=== PATIENT | female | born 1950 | race Caucasian/White ===

== ENCOUNTER 2019-05-24 06:12 | Outpatient (CLI) | payer MEDICARE, MEDICAID ==
[~2019-05-24] VITALS: Ht 167.6 cm; Wt 56.2 kg
[2019-05-24] MEDS ORDERED: ZOLP5TAB7 PO (09:11)
[2019-05-24] MEDS ORDERED: LINA145C PO (09:11)
[2019-05-24] MEDS ORDERED: FERR160T6 PO (09:11)
[2019-05-24] MEDS ORDERED: CALC-250 PO (09:11)
[2019-05-24] MEDS ORDERED: THYR120T2 PO (09:11)
[2019-05-24] MEDS ORDERED: ATEN50TA PO (09:11)
[2019-05-24] MEDS ORDERED: EST1.25T PO (09:11)
[2019-05-24] MEDS ORDERED: OMEP40CA36 PO (09:11)
[2019-05-24] MEDS ORDERED: HYDR12.56 PO (09:11)
[2019-05-24] MEDS ORDERED: HYDR-3816 PO (09:11)
[2019-05-24] MEDS ORDERED: CALC-308 PO (09:11)
[2019-05-24] MEDS ORDERED: ATOR40TA70 PO (09:11)
[2019-05-24] MEDS ORDERED: GABA-488 PO (09:11)
[2019-05-24] MEDS ORDERED: LORA0.5T PO (09:11)
== END 2019-05-24 09:17 | disposition home or self-care (01) ==
LOC: PREOP 06:12
PROVIDERS: ATTEND Orthopaedic Surgery
DX: Z01.818 Encounter for other preprocedural examination (principal)

== ENCOUNTER 2019-05-29 05:51 | Observation (INO) | payer MEDICARE, MEDICAID ==
[~2019-05-29] VITALS: Ht 167.7 cm; Wt 54.9 kg
[2019-05-29] VITALS (13 sets, daily range): BP systolic 95–137; BP diastolic 44–90
[~2019-05-29 05:51] MED LIST: ATEN50TA PO; ATOR40TA70 PO; CALC-250 PO; CALC-308 PO; EST1.25T PO; FERR160T6 PO; GABA-488 PO; HYDR-3816 PO; HYDR12.56 PO; LINA145C PO; LORA0.5T PO; OMEP40CA36 PO; THYR120T2 PO; ZOLP5TAB7 PO
[2019-05-29] MEDS ORDERED: MIDAZOLAM 2 MG/2 ML (VERSED) VIAL ONE (06:30)
[2019-05-29] MEDS ORDERED: fentaNYL INJECTION 100 MCG/2 ML AMP ONE (06:30)
[2019-05-29] MEDS ORDERED: DEXMEDETOMIDINE 200 MCG/2 ML (PRECEDEX) VIAL IV ONE (06:35)
[2019-05-29] MEDS ORDERED: LACTATED RINGERS 1,000 ML IV PRN (06:39)
[2019-05-29] MEDS ORDERED: VANCOMYCIN 1000 MG/VIAL ONE (06:42)
[2019-05-29] MEDS ORDERED: GENTAMICIN 40 MG/ML 2 ML INJ SDV ONE (06:42)
[2019-05-29] MEDS ORDERED: BUP/EPI 0.25% 1:200,000 (MARCAINE) 10 ML VIAL IJ ONE (06:42)
[2019-05-29] MEDS ORDERED: CLINDAMYCIN 600 MG/50 ML IVPB 50 ML IV ONE (06:45)
[2019-05-29] MEDS ORDERED: BACITRACIN 100,000 UNIT/NS 1000 ML POUR BOTTLE IR ONE ×2 (07:15)
--- NOTE | 2019-05-29 07:35 | NUR ---
DR. LIU CALLED AT THIS TIME, HE STATED HE CAN'T SEE PT. UNTIL THIS AFTERNOON & SINCE IT IS A NEW ONSET, HE'D LIKE PT. TO BE ADMITTED TO THE HOSPITAL.
--- NOTE | 2019-05-29 08:40 | NUR ---
DR. ROMAN CALLED AT THIS TIME
--- NOTE | 2019-05-29 08:55 | NUR ---
DR. LIU HERE AT THIS TIME TO SEE THE PT.
--- NOTE | 2019-05-29 09:05 | NUR ---
DR. ROMAN HERE AT THIS TIME TO SEE THE PT.
--- NOTE | 2019-05-29 11:40 | NUR ---
REPORT GIVEN TO CATHY KHANNA.
[2019-05-29] MEDS ORDERED: AMIODARONE FOR BOLUS 150 MG in D5W 100 ML IVPB 100 ML IV NR (13:11)
[2019-05-29] MEDS ORDERED: ONDANSETRON 4 MG (ZOFRAN) ORAL DISSOLVE TAB PO PRN (13:15)
[2019-05-29] MEDS ORDERED: DILTIAZEM 180 MG (CARDIZEM CD) CAP PO ONE (13:15)
[2019-05-29] MEDS ORDERED: PATIENT MAY USE OWN MEDS, ALL PO SCH (13:15)
[2019-05-29] MEDS ORDERED: MELATONIN 3 MG TABLET PO PRN (13:15)
[2019-05-29] MEDS ORDERED: APIXABAN 5 MG (ELIQUIS) TABLET PO NR (13:15)
[2019-05-29] MEDS ORDERED: BISACODYL 10 MG SUPP (DULCOLAX) PR PRN (13:15)
[2019-05-29] MEDS ORDERED: ACETAMINOPHEN 325 MG TABLET PO PRN (13:15)
[2019-05-29] MEDS ORDERED: POLYETHYLENE GLYCOL 17 GM (MIRALAX) PACK PO PRN (13:15)
[2019-05-29] MEDS ORDERED: DILTIAZEM 120 MG (CARDIZEM CD) CAP PO NR (13:30)
[2019-05-29 14:21] LABS: BASOPHILS % (AUTO) 1 % (0-10); EOSINOPHILS # (AUTO) 0.1 10^3/uL (0.0-0.3); EOSINOPHILS % (AUTO) 2 % (0-10); HEMATOCRIT 30 % (35-52); HEMOGLOBIN 9.5 G/DL (11.5-16.0); LYMPHOCYTES # (AUTO) 1.2 X 10^3 (1.0-4.0); LYMPHOCYTES % (AUTO) 37 % (12-44); MEAN CORPUSCULAR HEMOGLOBIN 28 PG (25-34); MEAN CORPUSCULAR HGB CONC 31 G/DL (32-36); MEAN CORPUSCULAR VOLUME 91 FL (80-99); MEAN PLATELET VOLUME 11.4 FL (7.4-10.4); MONOCYTES # (AUTO) 0.3 X 10^3 (0.0-1.0); MONOCYTES % (AUTO) 8 % (0-12); NEUTROPHILS # (AUTO) 1.7 X 10^3 (1.8-7.8); NEUTROPHILS % (AUTO) 52 % (42-75); PLATELET COUNT 147 10^3/uL (130-400); RED CELL DISTRIBUTION WIDTH 15.1 % (10.0-14.5); WHITE BLOOD COUNT 3.3 10^3/uL (4.3-11.0)
[2019-05-29 14:39] LABS: ALANINE AMINOTRANSFERASE 14 U/L (0-55); ALBUMIN 2.7 GM/DL (3.2-4.5); ALKALINE PHOSPHATASE 68 U/L (40-136); BILIRUBIN,TOTAL 0.3 MG/DL (0.1-1.0); BUN/CREATININE RATIO 30; CALCIUM 8.9 MG/DL (8.5-10.1); CARBON DIOXIDE 27 MMOL/L (21-32); CHLORIDE 110 MMOL/L (98-107); GFR ESTIMATED > 60; GLUCOSE 94 MG/DL (70-105); MAGNESIUM 1.6 MG/DL (1.6-2.4); POTASSIUM 3.9 MMOL/L (3.6-5.0); SODIUM 139 MMOL/L (135-145); TOTAL PROTEIN 5.4 GM/DL (6.4-8.2)
--- NOTE | 2019-05-29 15:05 | Consultation-Cardiology ---
HPI-Cardiology Cardiology Consultation: Date of Consultation 05/29/19 Date of Admission Attending Physician Poonam Paredes MD Admitting Physician No,Local Physician Consulting Physician Vin ALMANZAR MD HPI: Time Seen by a Provider: 09:30 Chief Complaint: New onset atrial fibrillation This is a 68-year-old lady who has previous history of PE, gastric bypass, hypertension, hypothyroidism, hyperlipidemia, sciatica with scheduled surgery for spinal cord stimulator. She was found to have a regular heart beating on arrival. EKG demonstrated atrial fibrillation with controlled ventricular rate. She has occasional palpitations. However she denies chest pain, shortness of breath, nausea, vomiting, abdominal pain. She has previous history of pulmonary embolism one and a half years ago. She took Eliquis for 6 months. Review of Systems-Cardiology Review of Systems Constitutional: As described under HPI; No As described under HPI, No no symptoms reported, No chills, No fever, No lightheadedness Eyes: No As described under HPI, No no symptoms reported, No blindness, No blurred vision, No contact lenses, No drainage, No decreased acuity, No foreign body sensation, No pain, No vision change Ears/Nose/Throat: No As described under HPI, No no symptoms reported, No chronic hearing loss, No ear discharge, No ear pain, No nasal drainage, No ulcerations Respiratory: No no symptoms reported; As described under HPI; No As described under HPI, No cough, No orthopnea, No shortness of breath, No SOB with excertion Cardiovascular: No no symptoms reported; As described under HPI; No As described under HPI, No chest pain, No edema; irregular heart rate; No lightheadedness, No palpitations Gastrointestinal: No no symptoms reported, No As described under HPI, No abdomen distended, No abdominal pain, No blood streaked bowels, No constipation, No diarrhea, No nausea, No vomiting, No stool coloration changes Genitourinary: No As described under HPI, No burning, No dysuria, No discharge, No frequency, No flank pain, No hematuria, No urgency : Yes : No Skin: No rash, No skin related problems, No ulcerations Psychiatric/Neurological: No anxiety, No depression, No seizure, No focal weakness, No syncope Hematologic: No bleeding abnormalities [id number]-[id number]-Ecbzmi Hx Patient Social History Alcohol Use: Denies Use Recreational Drug Use: No Smoking Status: Former Smoker Recent Foreign Travel: No Recent Infectious Disease Expo: No Immunizations Up To Date Tetanus Booster (TDap): Unknown Date of Pneumonia Vaccine: May 24, 2016 Past Medical History PMH As described under Assessment. Allergies and Home Medications Allergies Coded Allergies: Penicillins (Verified Allergy, Unknown, 05/24/19) buprenorphine (Verified Allergy, Unknown, Anaphylaxis, 05/24/19) ibuprofen (Verified Allergy, Unknown, Anaphylaxis, 05/24/19) naproxen (Verified Allergy, Unknown, Anaphylaxis, 05/24/19) Home Medications Atenolol 50 Mg Tablet, 25 MG PO DAILY, (Reported) take 1/2 of 50mg tab Atorvastatin Calcium 40 Mg Tablet, 40 MG PO HS, (Reported) Calcium Carbonate 500 Mg Tab.chew, 500 MG PO BID, (Reported) Cholecalciferol 5,000 Unit Capsule, 5,000 UNIT PO DAILY, (Reported) Estrogens Conjugated 1.25 Mg Tab, 1.25 MG PO DAILY, (Reported) Ferrous Sulfate, Dried 160 Mg Tablet.er, 160 MG PO DAILY, (Reported) Gabapentin 300 Mg Capsule, 300 MG PO HS, (Reported) Hydrochlorothiazide 12.5 Mg Tablet, 12.5 MG PO DAILY PRN for leg swelling, (Reported) Hydrocodone/Acetaminophen 1 Each Tablet, 1 TAB PO Q6H PRN for PAIN-MODERATE, (Reported) Linaclotide 145 Mcg Capsule, 145 MCG PO Q48H, (Reported) Lorazepam 0.5 Mg Tablet, 0.5 MG PO HS, (Reported) Omeprazole 40 Mg Capsule.dr, 40 MG PO DAILY, (Reported) Thyroid,Pork 120 Mg Tablet, 120 MG PO DAILY, (Reported) Zolpidem Tartrate 5 Mg Tablet, 5 MG PO HS, (Reported) Patient Home Medication List Home Medication List Reviewed: Yes Physical Exam-Cardiology Physical Exam Vital Signs/I&O 05/29/19 05/29/19 05/29/19 05/29/19 06:15 12:00 12:52 13:00 Temp 36.8 Pulse 86 68 68 70 Resp 18 20 41 B/P (MAP) 121/70 115/75 121/71 Pulse Ox 98 97 90 O2 Delivery Room Air Room Air Room Air 05/29/19 05/29/19 05/29/19 05/29/19 14:00 15:00 16:00 17:00 Pulse 68 68 102 73 Resp 32 13 28 13 B/P (MAP) 119/90 128/89 118/69 110/44 Pulse Ox 98 98 96 97 O2 Delivery Room Air Room Air Room Air Room Air Capillary Refill : Constitutional: appears stated age, AAO x 3; No apparent distress; well- developed, well-nourished HEENT: PERRL; No discharge; hearing is well preserved, oral hygience is good; No ulceration, No xanthelasmas are seen Neck: No carotid bruit; carotid pulses are 2 + bilaterally Respiratory: chest is bilaterally symmetric, lungs clear to auscultation Cardiovascular: irregularly irregular, S1 and S2 Gastrointestinal: soft, audible bowel sounds; No spleenomegaly Rectal: deferred Extremities: normal range of motion, non-tender, normal inspection; No clubbing, No cyanosis; no lower extremity edema bilateral; No significant edema Neurologic/Psychiatric: no motor/sensory deficits, alert, normal mood/affect, oriented x 3, power is 5/5 both on sides Skin: normal color; No rash, No ulcerations Data Review Labs Laboratory Tests 05/29/19 14:10: White Blood Count 3.3L, Red Blood Count 3.36L, Hemoglobin 9.5L, Hematocrit 30L, Mean Corpuscular Volume 91, Mean Corpuscular Hemoglobin 28, Mean Corpuscular Hemoglobin Concent 31L, Red Cell Distribution Width 15.1H, Platelet Count 147, Mean Platelet Volume 11.4H, Neutrophils (%) (Auto) 52, Lymphocytes (%) (Auto) 37, Monocytes (%) (Auto) 8, Eosinophils (%) (Auto) 2, Basophils (%) (Auto) 1, Neutrophils # (Auto) 1.7L, Lymphocytes # (Auto) 1.2, Monocytes # (Auto) 0.3, Eosinophils # (Auto) 0.1, Basophils # (Auto) 0.0, Sodium Level 139, Potassium Level 3.9, Chloride Level 110H, Carbon Dioxide Level 27, Anion Gap 2L, Blood Urea Nitrogen 21H, Creatinine 0.70, Estimat Glomerular Filtration Rate > 60, BUN/Creatinine Ratio 30, Glucose Level 94, Calcium Level 8.9, Corrected Calcium 9.9, Magnesium Level 1.6, Total Bilirubin 0.3, Aspartate Amino Transf (AST/SGOT) 16, Alanine Aminotransferase (ALT/SGPT) 14, Alkaline Phosphatase 68, Total Protein 5.4L, Albumin 2.7L, Thyroid Stimulating Hormone (TSH) 0.75 ECG Impression ECG Initial ECG Impression: Atrial Fibrillation A/P-Cardiology Assessment/Admission Diagnosis Atrial fibrillation with controlled ventricular rate, Previous history of pulmonary embolism, Sciatica, Hypothyroid and, Hyperlipidemia, Hypertension, History of gastric bypass surgery. Plan I discussed at length about pathophysiology of atrial fibrillation. Since this is new onset atrial fibrillation, inpatient evaluation is recommended. She'll be started on by mouth Cardizem. Eliquis 5 mg twice a day. We'll also give IV amiodarone bolus overnight. If she does not convert till tomorrow morning we will consider transesophageal echocardiogram assisted cardioversion. I discussed at length and took informed consent which included small chance of esophageal damage as well as small risk of stroke. She will continue Eliquis post cardioversion. Eliquis will need to be held for at least for 2 days before the spinal stimulator can be done. Elevated CHADSVASC score of at least 3, gender, hypertension, age. Therefore Eliquis is superior to aspirin. Also she is allergic to aspirin due to her gastric bypass surgery. I'll recommend a regular echocardiogram as well to evaluate left atrial size. Sciatica, postpone spinal stimulator. Hyperlipidemia, continue outpatient statin therapy. Hypertension, continue outpatient medical therapy. Thank you for your consultation. Please call me if you have any questions. Mickie Almanzar MD, FACP, FACC, FSCAI, FHRS, CCDS Interventional Cardiology Cardiac Electrophysiology Vascular Medicine and Endovascular Interventions Vin ALMANZAR MD May 29, 2019 15:05
--- NOTE | 2019-05-29 16:17 | History & Physical-Hospitalist ---
History of Present Illness HPI/Chief Complaint Billy Lovett is a 68-year-old female with past medical history of hypertension, hypothyroidism, hyperlipidemia, sciatica, who presented for a scheduled surgery to have a spinal cord stimulator placed. Upon arrival she was found to be in atrial fibrillation. Her surgery was canceled. Cardiology was consulted and recommended admission to begin antiarrhythmics, anticoagulation, and possible cardioversion. She reports having no current symptoms. She does state that she occasionally has a "fluttering" in her chest "like a bird flapping its wings". She denies any chest pain, shortness of breath, abdominal pain, nausea, vomiting. Source: patient Exam Limitations: no limitations Date Seen 05/29/19 Time Seen by a Provider: 10:30 Attending Physician Kathleen Roman MD PCP No,Local Physician Referring Physician Date of Admission May 29, 2019 at 11:58 Home Medications & Allergies Home Medications Reviewed patient Home Medication Reconciliation performed by pharmacy medication reconciliations food service technician and/or nursing. Patients Allergies have been reviewed. Allergies Allergies Coded Allergies Penicillins (Verified Allergy, Unknown, 05/24/19) buprenorphine (Verified Allergy, Unknown, Anaphylaxis, 05/24/19) ibuprofen (Verified Allergy, Unknown, Anaphylaxis, 05/24/19) naproxen (Verified Allergy, Unknown, Anaphylaxis, 05/24/19) Past Ghzlggl-Julqrp-Smrjrs Hx Past Med/Social Hx: Reviewed Nursing Past Med/Soc Hx Patient Social History Alcohol Use: Denies Use Recreational Drug Use: No Smoking Status: Former Smoker Former Smoker, Quit: May 24, 1998 Recent Foreign Travel: No Contact w/other who traveled: No Recent Hopitalizations: No Recent Infectious Disease Expo: No Immunizations Up To Date Tetanus Booster (TDap): Unknown Pediatric: No Date of Pneumonia Vaccine: May 24, 2016 Seasonal Allergies Seasonal Allergies: Yes Past Medical History Surgeries: Gallbladder, Hysterectomy Cardiac: High Cholesterol, Hypertension Hysterectomy Gastrointestinal: Gastroesophageal Reflux, Chronic Constipation Musculoskeletal: Arthritis, Chronic Back Pain HEENT: Cataract Psychosocial: Depression History of Blood Disorders: No Review of Systems Constitutional: no symptoms reported, see HPI EENTM: no symptoms reported Respiratory: no symptoms reported Cardiovascular: no symptoms reported Gastrointestinal: no symptoms reported Genitourinary: no symptoms reported Skin: no symptoms reported Psychiatric/Neurological: No Symptoms Reported Physical Exam Physical Exam Vital Signs Vital Signs - First Documented 05/29/19 06:15 Temp 36.8 Pulse 86 Resp 18 B/P (MAP) 121/70 Pulse Ox 98 O2 Delivery Room Air Capillary Refill : Height, Weight, BMI Height: 5'6.00" Weight: 124lbs. 0.0oz. 56.009138qm; 20.19 BMI Method: General Appearance: No Apparent Distress, WD/WN HEENT: PERRL/EOMI, Pharynx Normal Neck: Normal Inspection, Supple Respiratory: Lungs Clear, Normal Breath Sounds, No Respiratory Distress Cardiovascular: Regular Rate, Rhythm, No Edema, No Murmur Gastrointestinal: Normal Bowel Sounds, Non Tender, Soft Extremity: Normal Inspection, Non Tender Neurologic/Psychiatric: Alert, Oriented x3 Skin: Normal Color, Warm/Dry Lymphatic: No Adenopathy Results Results/Procedures Labs Laboratory Tests 05/29/19 14:10 Patient resulted labs reviewed. Assessment/Plan Admission Diagnosis paroxysmal atrial fibrillation Admission Status: Observation Reason for Inpatient Admission: hypertension Hyperlipidemia Hypothyroidism Assessment and Plan paroxysmal atrial fibrillation New onset EKG revealing rate controlled atrial fibrillation Spinal cord stimulator procedure canceled Admit to the ICU on IV amiodarone begin oral Cardizem start Eliquis Cardiology consulted, appreciate assistance transthoracic echocardiogram ordered Nothing by mouth midnight for possible ESAU cardioversion tomorrow Hypertension Continue atenolol Hypothyroidism Continue thyroid replacement therapy Hyperlipidemia Continue statin Sciatica procedure canceled, will follow-up with Dr. Tan in about a month oxycodone and Tylenol as needed History of pulmonary embolism history of DVT provoked following surgery completed six-month course of Eliquis history of gastric bypass Clinically significant, no acute management needs Diagnosis/Problems Diagnosis/Problems (1) Paroxysmal atrial fibrillation Status: Acute KATHLEEN ROMAN MD May 29, 2019 16:17
[2019-05-29] MEDS: AMIODARONE INJECTION 450 MG in D5W IV SOLUTION (EXCEL) 250 ML IV SCH ×3 (18:19→22:01)
[2019-05-29] MEDS ORDERED: LORazepam 0.5 MG (ATIVAN) TABLET PO SCH (21:00)
[2019-05-29] MEDS ORDERED: GABAPENTIN 300 MG (NEURONTIN) CAP PO SCH (21:00)
[2019-05-29] MEDS: SENNA W/DOCUSATE (SENOKOT S) TABLET PO SCH (21:11)
[2019-05-29] MEDS: APIXABAN 5 MG (ELIQUIS) TABLET PO SCH (21:12)
[2019-05-29] MEDS: DOCUSATE SODIUM 100 MG (COLACE) CAP PO SCH (21:12)
[2019-05-30] VITALS (13 sets, daily range): BP systolic 93–118; BP diastolic 46–70
[2019-05-30 03:22] LABS: HEMOGLOBIN 9.7 G/DL (11.5-16.0); MEAN PLATELET VOLUME 11.4 FL (7.4-10.4); RED CELL DISTRIBUTION WIDTH 14.8 % (10.0-14.5); WHITE BLOOD COUNT 3.8 10^3/uL (4.3-11.0)
[2019-05-30 03:45] LABS: BUN/CREATININE RATIO 30; CARBON DIOXIDE 24 MMOL/L (21-32); CHLORIDE 111 MMOL/L (98-107); CREATININE SERUM 0.69 MG/DL (0.60-1.30); GFR ESTIMATED > 60; GLUCOSE 84 MG/DL (70-105); MAGNESIUM 1.5 MG/DL (1.6-2.4); POTASSIUM 4.1 MMOL/L (3.6-5.0); SODIUM 141 MMOL/L (135-145)
[2019-05-30] MEDS: MAGNESIUM 1 GM/100 ML IVPB 100 ML IV SCH ×2 (04:00→05:00)
[2019-05-30] MEDS ORDERED: POTASSIUM CL 10MEQ/50ML IVPB 50 ML IV SCH (06:00)
[2019-05-30] MEDS ORDERED: KCL 20 MEQ TAB (K-DUR) PO SCH (06:00)
[2019-05-30] MEDS ORDERED: MAGNESIUM 1 GM/100 ML IVPB 100 ML IV SCH (06:00)
[2019-05-30] MEDS ORDERED: THYROID (ARMOUR) 60 MG TABLET PO SCH (06:30)
[2019-05-30] MEDS ORDERED: PANTOPRAZOLE 40 MG (PROTONIX) TAB PO SCH (07:00)
[2019-05-30] MEDS ORDERED: NS IV 500 ML 500 ML ONE (07:17)
[2019-05-30] MEDS ORDERED: LIDOCAINE 2% VISCOUS 15 ML UDC ONE (07:17)
[2019-05-30] MEDS ORDERED: NS IV 500 ML 500 ML IV SCH (07:45)
[2019-05-30] MEDS ORDERED: LIDOCAINE 2% VISCOUS 15 ML UDC PO ONE (07:45)
[2019-05-30] MEDS ORDERED: MIDAZOLAM 5 MG/5 ML (VERSED) VIAL ONE (08:23)
[2019-05-30] MEDS ORDERED: proPOfol 200 MG/20 ML (DIPRIVAN) VIAL IV ONE (08:23)
--- NOTE | 2019-05-30 08:36 | NUR ---
Time out called - procedure reviewed.
--- NOTE | 2019-05-30 08:52 | NUR ---
ESAU/cardioversion note: isaac Elizaldeo sandi, Dr. Almanzra, and anesthesia at bedside. Pt connected to all bedside monitoring, including ETCO2 and to zoll patches via crash cart. Ambu bag at bedside. Pt sedated via anesthesia. ESAU performed. Dr. Almanzar gave "ok" to shock, pt shock on sync mode with 200J x1. Pt converted to SB 50s. Will remain with pt until she is awake and alert
[2019-05-30] MEDS ORDERED: THYROID PORK 120 MG PO SCH (09:00)
[2019-05-30] MEDS ORDERED: ATENOLOL 50 MG (TENORMIN) TAB PO SCH (09:00)
[2019-05-30] MEDS ORDERED: ATENOLOL 25 MG (TENORMIN) TAB PO SCH (09:00)
[2019-05-30] MEDS ORDERED: DILTIAZEM 120 MG (CARDIZEM CD) CAP PO SCH (09:00)
[2019-05-30] MEDS: APIXABAN 5 MG (ELIQUIS) TABLET PO SCH (09:03)
[2019-05-30] MEDS: SENNA W/DOCUSATE (SENOKOT S) TABLET PO SCH (09:04)
[2019-05-30] MEDS: DOCUSATE SODIUM 100 MG (COLACE) CAP PO SCH (09:04)
--- NOTE | 2019-05-30 09:20 | Progress Note ---
Standard Progress Note Progress Notes/Assess & Plan Date Seen by a Provider: May 30, 2019 Time Seen by a Provider: 08:50 Progress/Assessment & Plan consult for sedation for nikhil/cardioversion. start time 0850 end time 0900 . 1 mg versed given and 40 mg propofol. pt tolerated procedure well CLAUDIA BARFIELD CRNA May 30, 2019 09:20
[2019-05-30] MEDS ORDERED: DILT120C94 PO (10:39)
[2019-05-30] MEDS ORDERED: APIX5TAB PO (10:39)
--- NOTE | 2019-05-30 10:46 | Discharge Summary ---
Discharge Summary Hospital Course Was the Problem List Reviewed?: Yes Problems/Dx: (1) Paroxysmal atrial fibrillation Status: Acute Hospital Course Date of Admission: May 29, 2019 at 11:58 Admission Diagnosis : Paroxysmal atrial fibrillation Family Physician/Provider: Date of Discharge: 05/30/19 Discharge Diagnosis: Paroxysmal atrial fibrillation Hospital Course: Billy Lovett is a 68yoF with PMH sciatica who presented for a spinal cord stimulator placement but was found to be in new onset atrial fibrillation and her procedure was cancelled. She was admitted to the ICU and started on Amiodarone IV and oral Cardizem as well as Eliquis for anticoagulation. She remained in atrial fibrillation the following morning and underwent ESAU cardioversion and converted to normal sinus rhythm. Her Atenolol was stopped. She was started on new outpatient meds Cardizem and Eliquis. She will follow up with Dr. Almanzar. She will follow up with Dr. Tan for reassessment of her spinal cord stimulator placement procedure. Labs and Pending Lab Test: Laboratory Tests 05/29/19 14:10: White Blood Count 3.3L, Red Blood Count 3.36L, Hemoglobin 9.5L, Hematocrit 30L, Mean Corpuscular Volume 91, Mean Corpuscular Hemoglobin 28, Mean Corpuscular He moglobin Concent 31L, Red Cell Distribution Width 15.1H, Platelet Count 147, Mean Platelet Volume 11.4H, Neutrophils (%) (Auto) 52, Lymphocytes (%) (Auto) 37, Monocytes (%) (Auto) 8, Eosinophils (%) (Auto) 2, Basophils (%) (Auto) 1, Neutrophils # (Auto) 1.7L, Lymphocytes # (Auto) 1.2, Monocytes # (Auto) 0.3, E osinophils # (Auto) 0.1, Basophils # (Auto) 0.0, Sodium Level 139, Potassium Level 3.9, Chloride Level 110H, Carbon Dioxide Level 27, Anion Gap 2L, Blood Urea Nitrogen 21H, Creatinine 0.70, Estimat Glomerular Filtration Rate > 60, BUN/Creatinine Ratio 30, Glucose Level 94, Calcium Level 8.9, Corrected Calcium 9.9, Magnesium Level 1.6, Total Bilirubin 0.3, Aspartate Amino Transf (AST/SGOT) 16, Alanine Aminotransferase (ALT/SGPT) 14, Alkaline Phosphatase 68, Total Protein 5.4L, Albumin 2.7L, Thyroid Stimulating Hormone (TSH) 0.75 05/30/19 02:55: White Blood Count 3.8L, Red Blood Count 3.36L, Hemoglobin 9.7L, Hematocrit 30L, Mean Corpuscular Volume 90, Mean Corpuscular Hemoglobin 29, Mean Corpuscular Hemoglobin Concent 32, Red Cell Distribution Width 14.8H, Platelet Count 153, Mean Platelet Volume 11.4H, Sodium Level 141, Potassium Level 4.1, Chloride Level 111H, Carbon Dioxide Level 24, Anion Gap 6, Blood Urea Nitrogen 21H, Creatinine 0.69, Estimat Glomerular Filtration Rate > 60, BUN/Creatinine Ratio 30, Glucose Level 84, Calcium Level 9.0, Magnesium Level 1.5L Home Meds Active Diltiazem 24Hr Cd (Diltiazem HCl) 120 Mg Cap.er.24h 120 Mg PO DAILY 90 Days Eliquis (Apixaban) 5 Mg Tablet 5 Mg PO BID 90 Days Reported Hydrocodone-Acetamin 7.5-325 (Hydrocodone/Acetaminophen) 1 Each Tablet 1 Tab PO Q6H PRN Gabapentin 300 Mg Capsule 300 Mg PO HS Slow Release Iron (Ferrous Sulfate, Dried) 160 Mg Tablet.er 160 Mg PO DAILY Calcium (Calcium Carbonate) 500 Mg Tab.chew 500 Mg PO BID Vitamin D (Cholecalciferol) 5,000 Unit Capsule 5,000 Unit PO DAILY [place] Thyroid (Thyroid,Pork) 120 Mg Tablet 120 Mg PO DAILY Zolpidem Tartrate 5 Mg Tablet 5 Mg PO HS Lorazepam 0.5 Mg Tablet 0.5 Mg PO HS Omeprazole 40 Mg Capsule.dr 40 Mg PO DAILY Atenolol 50 Mg Tablet 25 Mg PO DAILY take 1/2 of 50mg tab Linzess (Linaclotide) 145 Mcg Capsule 145 Mcg PO Q48H Atorvastatin Calcium 40 Mg Tablet 40 Mg PO HS Premarin (Estrogens Conjugated) 1.25 Mg Tab 1.25 Mg PO DAILY Hydrochlorothiazide 12.5 Mg Tablet 12.5 Mg PO DAILY PRN Assessment/Pt Instructions Take medications as prescribed. Follow up with Dr. Almanzar. Follow up with Dr. Tan. Discharge Planning: <30 minutes discharge planning Discharge Instructions Discharge Diet: No Restrictions Activity as Tolerated: Yes Consultations Cardiology Discharge Physical Examination Vital Signs Vital Signs Date Time Temp Pulse Resp B/P (MAP) Pulse Ox O2 Delivery O2 Flow Rate FiO2 05/30/19 10:00 63 118/66 (83) 95 Room Air 05/30/19 09:00 23 05/30/19 08:00 36.8 General Appearance: No Apparent Distress, WD/WN HEENT: PERRL/EOMI, Pharynx Normal Respiratory: Lungs Clear, Normal Breath Sounds, No Respiratory Distress Cardiovascular: Regular Rate, Rhythm, No Edema, No Murmur Gastrointestinal: Normal Bowel Sounds, Non Tender, Soft Extremity: Normal Inspection, Non Tender, No Pedal Edema Skin: Normal Color, Warm/Dry Neurologic/Psychiatric: Alert, Oriented x3, No Motor/Sensory Deficits Allergies: Coded Allergies: Penicillins (Verified Allergy, Unknown, 05/24/19) buprenorphine (Verified Allergy, Unknown, Anaphylaxis, 05/24/19) ibuprofen (Verified Allergy, Unknown, Anaphylaxis, 05/24/19) naproxen (Verified Allergy, Unknown, Anaphylaxis, 05/24/19) Discharge Summary Date of Admission May 29, 2019 at 11:58 Date of Discharge Discharge Date: May 30, 2019 Discharge Time: 10:45 Admission Diagnosis paroxysmal atrial fibrillation Consults/Procedures Consulations Cardiology Procedures ESAU Cardioversion Discharge Diagnosis paroxysmal atrial fibrillation New onset EKG revealing rate controlled atrial fibrillation Spinal cord stimulator procedure canceled Admit to the ICU on IV amiodarone begin oral Cardizem start Eliquis Cardiology consulted, appreciate assistance transthoracic echocardiogram ordered Nothing by mouth midnight for possible ESAU cardioversion tomorrow Hypertension Continue atenolol Hypothyroidism Continue thyroid replacement therapy Hyperlipidemia Continue statin Sciatica procedure canceled, will follow-up with Dr. Tan in about a month oxycodone and Tylenol as needed History of pulmonary embolism history of DVT provoked following surgery completed six-month course of Eliquis history of gastric bypass Clinically significant, no acute management needs (1) Paroxysmal atrial fibrillation Status: Acute Clinical Quality Measures DVT/VTE Risk/Contraindication: Risk Factor Score Per Nursin RFS Level Per Nursing on Admit: 4+=Very High KATHLEEN ROMAN MD May 30, 2019 10:45
--- NOTE | 2019-05-30 17:53 | Cardiology Progress Note ---
Cardiology SOAP Progress Note Subjective: No cardiac symptoms. Objective: I&O/Vital Signs Weight (Pounds): 121 Weight (Ounces): 0.0 Weight (Calculated Kilograms): 54.840486 Constitutional: appears stated age, AAO x 3; No apparent distress; well- developed, well-nourished Respiratory: chest is bilaterally symmetric, lungs clear to auscultation Cardiovascular: irregularly irregular, S1 and S2 Gastrointestional: soft, audible bowel sounds; No spleenomegaly Extremities: normal range of motion, non-tender, normal inspection; No clubbing, No cyanosis; no lower extremity edema bilateral; No significant edema Neurologic/Psychiatric: no motor/sensory deficits, alert, normal mood/affect, oriented x 3, power is 5/5 both on sides Skin: normal color; No rash, No ulcerations Results/Procedures: Labs Microbiology 05/29/19 MRSA Screen - Final, Complete MRSA not isolated A/P: Assessment/Dx: Atrial fibrillation with controlled ventricular rate, Previous history of pulmonary embolism, Sciatica, Hypothyroid and, Hyperlipidemia, Hypertension, History of gastric bypass surgery. Plan: Atrial fibrillation with controlled ventricular rate. Cardizem, Eliquis, IV amiodarone was given overnight. Still in atrial fibrillation. Transesophageal echocardiogram assisted cardioversion today. Sciatica, postpone spinal stimulator. Hyperlipidemia, continue outpatient statin therapy. Hypertension, continue outpatient medical therapy. Thank you for your consultation. Please call me if you have any questions. Mickie Almanzar MD, FACP, FACC, FSCAI, FHRS, CCDS Interventional Cardiology Cardiac Electrophysiology Vascular Medicine and Endovascular Interventions Vin ALMANZAR MD May 30, 2019 17:53
--- NOTE | 2019-05-30 17:54 | Cardioversion ---
Cardioversion PROCEDURE PHYSICIAN: Mickie Almanzar MD DATE OF PROCEDURE: 05/30/19 DIRECT EXTERNAL ELECTRICAL CARDIOVERSION: Indications: Atrial Fibrillation Preoperative diagnoses: Atrial Fibrillation Postoperative diagnosis: Sinus rhythm, Successful Electrical Cardioversion History: Anesthesia: By Anesthesia services Complications: None Specimen: None Contrast: 0 Flouroscopy: none Procedure Details: The patient was brought the manufacturing lab technician after informed consent was taken, all the risks and complications were explained including the risk of stroke. Transesophageal echocardiogram showed no evidence of left atrial or left atrial appendage thrombus. Electrical cardioversion was carried out with anesthesia support with propofol. 200 joules of synchronized shock was delivered through external patches which promptly restored sinus rhythm. The patient tolerated the procedure well. Conclusions: 1.Successful Cardioversion. 2.Continue oral anticoagulation and rate controlling agent. Mickie Almanzar MD, RS, CCDS Cardiac Electrophysiology Vin ALMANZAR MD May 30, 2019 17:54
== END 2019-05-30 12:05 | disposition home or self-care (01) ==
LOC: SDC 05:51 → ICU 11:58
PROVIDERS: ADMIT Internal Medicine; ATTEND Internal Medicine
DX: I48.0 Paroxysmal atrial fibrillation (principal); I10 Essential (primary) hypertension; M19.90 Unspecified osteoarthritis, unspecified site; E03.9 Hypothyroidism, unspecified; E78.5 Hyperlipidemia, unspecified; G89.29 Other chronic pain; M54.30 Sciatica, unspecified side; F32.9 Major depressive disorder, single episode, unspecified; Z88.6 Allergy status to analgesic agent; Z88.5 Allergy status to narcotic agent; Z87.891 Personal history of nicotine dependence; Z90.710 Acquired absence of both cervix and uterus; Z86.718 Personal history of other venous thrombosis and embolism; Z88.1 Allergy status to other antibiotic agents; Z86.711 Personal history of pulmonary embolism; Z98.84 Bariatric surgery status; Z79.891 Long term (current) use of opiate analgesic; Z79.899 Other long term (current) drug therapy
CPT/HCPCS: 36415; 80048; 80053; 83735; 84443; 85025; 85027; 87081; 93005; 93306; 93312; 93320; 93325; 99211; G0378

== ENCOUNTER 2019-06-20 11:43 | Outpatient (RCR) | payer MEDICARE, MEDICAID ==
[~2019-06-20 11:43] MED LIST changes: +APIX5TAB PO; +DILT120C94 PO
== END 2019-09-18 | disposition home or self-care (01) ==
LOC: CARD 11:43
PROVIDERS: ATTEND Internal Medicine Interventional Cardiology
DX: I48.19 Other persistent atrial fibrillation (principal)
CPT/HCPCS: 93270

== ENCOUNTER → 2019-08-03 | Outpatient (CLI) | payer MEDICARE, MEDICAID ==
[~2019-08-03] VITALS: Ht 167 cm; Wt 52.0 kg
[~2019-08-03] MED LIST changes: +CATHETER FLUSH 10 ML SYR IV PRN; +LIDOCAINE 1% INJ 20 ML 20 ML VIAL ONE; +REGADENOSON 0.4 MG/5 ML SYR (LEXISCAN) IV ONE
[2019-08-08 11:00] VITALS: BP 142/70
--- NOTE | 2019-08-08 11:00 | Cardiology Stress Test Report ---
Stress Test Report Type of NM Stress Test: Test Type: LEXISCAN 0.4MG/5ML Date of Procedure/Referring: Date of Procedure: Aug 03, 2019 PCP Vin Almanzar MD Admitting Physician Jesus Hoyt MD Indications: Persistent atrial fibrillation Baseline Heart Rate: 66 Baseline Blood Pressure: Blood Pressure Systolic: 142 Blood Pressure Diastolic: 70 Baseline EKG: Baseline EKG: sinus rhythm Summary & Conclusion: Summary: The patient was brought to the stress lab after informed consent was taken. Stress test was performed according to the Lexiscan protocol. 0.4 mg of IV Lexiscan was given. Low-grade exercise was performed. Baseline EKG showed sinus rhythm at 66 BPM. Initial blood pressure was 142/70 mmHg. Maximum heart rate was 95 bpm and blood pressure 153/81 mmHg. Patient did not have any chest pain, arrhythmias or ST segment changes during the stress test. Few PVCs. Nonsignificant ST depression in leads 2, 3, aVF. 10.95 mCi of Myoview were given for rest imaging and 32.7 mCi of Myoview given for stress imaging. Transient ischemic dilatation score 1.0, EF 52 percent. Normal wall motion. Normal myocardial perfusion imaging during rest and stress. Conclusion: Pharmacological stress test was negative for ischemia. Normal LV function with no wall motion abnormalities. Normal myocardial perfusion imaging during rest and stress. Vin ALMANZAR MD Aug 08, 2019 11:00 POS
== END ==
LOC: CARD 07:48
PROVIDERS: ATTEND Internal Medicine Interventional Cardiology
DX: I48.19 Other persistent atrial fibrillation (principal); E78.01 Familial hypercholesterolemia; I10 Essential (primary) hypertension; Z86.711 Personal history of pulmonary embolism
CPT/HCPCS: 78452; 93017

== ENCOUNTER → 2019-08-03 | Day surgery (SDC) | payer MEDICARE, MEDICAID ==
[~2019-08-03] MED LIST changes: -CATHETER FLUSH 10 ML SYR IV PRN; -LIDOCAINE 1% INJ 20 ML 20 ML VIAL ONE; -REGADENOSON 0.4 MG/5 ML SYR (LEXISCAN) IV ONE
--- NOTE | 2019-08-03 11:56 | Implantation of Loop Monitor ---
Implant of Loop Monitior PROCEDURE PHYSICIAN: Mickie Almanzar MD IMPLANTATION OF LOOP MONITOR REPORT DATE OF PROCEDURE: 08/03/19 PERFORMING PHYSICIAN: Dr. Oscar Almanzar. INDICATION: Long-term surveillance of atrial fibrillation PREOP DIAGNOSIS: Long-term surveillance of atrial fibrillation POSTOP DIAGNOSIS: Paroxysmal Atrial fibrillation, s/p implantation of loop recorder. PROCEDURE DETAILS: The patient is a 68 female with history of paroxysmal atrial fibrillation requiring long-term surveillance. Therefore implantable loop recorder was discussed and agreed with the patient. Informed consent was taken. All risks and complications were discussed at length. The patient was draped and prepped in the usual sterile fashion. Local anesthesia was lidocaine, which was given in the substernal area close to the 4th intercostal space. Loop monitor was implanted according to the protocol. Steri-Strips were placed at the end of the procedure. There were no complications and the patient tolerated the procedure well. ANESTHESIA: Local anesthesia with lidocaine. COMPLICATIONS: None CONTRAST/FLUOROSCOPY: None CONCLUSION: 1. Successful implantation of loop monitor for probably is related to defibrillation. 2. No complication and the patient tolerated the procedure well. Mickie Almanzar MD, [facility] Cardiac Electrophysiology Vin ALMANZAR MD Aug 03, 2019 11:56 am POS
== END | disposition home or self-care (01) ==
LOC: CATH 07:46
PROVIDERS: ATTEND Internal Medicine Interventional Cardiology
DX: I48.0 Paroxysmal atrial fibrillation (principal); I48.19 Other persistent atrial fibrillation; Z88.0 Allergy status to penicillin; I10 Essential (primary) hypertension; E78.01 Familial hypercholesterolemia; Z86.711 Personal history of pulmonary embolism; Z79.899 Other long term (current) drug therapy; Z87.891 Personal history of nicotine dependence; E03.9 Hypothyroidism, unspecified; M54.40 Lumbago with sciatica, unspecified side; Z79.01 Long term (current) use of anticoagulants; Z98.84 Bariatric surgery status
CPT/HCPCS: 33285

== ENCOUNTER → 2020-02-01 | Day surgery (SDC) | payer MEDICARE, MEDICAID ==
[~2020-02-01] VITALS: Ht 65 cm; Wt 52.0 kg
[2020-02-01] VITALS (8 sets, daily range): BP systolic 107–129; BP diastolic 60–75
[~2020-02-01] MED LIST changes: +DILT120C88 PO; -DILT120C94 PO; +HYDR-34 PO; -HYDR-3816 PO; +NS IV 1000 ML 1,000 ML IV SCH; +OMEP40CA27 PO; -OMEP40CA36 PO; +[UNRECOGNIZED DRUG - CODE] PO
--- OUTSIDE RECORDS SUMMARY | 2020-02-01 08:29 | XMS REPORT | Continuity of Care Document ---
Author Organization Unknown Address Unknown Phone Unavailable Allergies Active Description Code Type Severity Reaction Onset Reported/Identified Relationship to Patient Clinical Status Yes buprenorphine [id number] Michael g Allergy Unknown Anaphylaxis 05/24/2019 Yes ibuprofen [id number] Drug Allergy Unknown Anaphylaxis 05/24/2019 Yes naproxen [id number] Drug Allergy Unknown Anaphylaxis 05/24/2019 Yes Penicillins [id number] Drug Aller gy Unknown N/A 05/24/2019 Medications There is no data. Problems Date Dx Coded Attending Type Code Diagnosis Diagnosed By 05/24/2019 RENEE MCLEAN DO Ot Z01.818 ENCOUNTER FOR OTHER PREPROCEDURAL EXAMIN 05/25/2019 RENEE MCLEAN DO Ot Z01.818 ENCOUNTER FOR OTHER PREPROCEDURAL EXAMIN 05/30/2019 RENEE MCLEAN DO, Ot Z01.818 ENCOUNTER FOR OTHER PREPROCEDURAL EXAMIN 05/30/2019 KATHLEEN ROMAN MD Ot E03. 9 HYPOTHYROIDISM, UNSPECIFIED 05/30/2019 KATHLEEN ROMAN MD Ot E78. 5 HYPERLIPIDEMIA, UNSPECIFIED 05/30/2019 KATHLEEN ROMAN MD Ot F32. 9 MAJOR DEPRESSIVE DISORDER, SINGLE EPISOD 05/30/2019 KATHLEEN ROMAN MD Ot G89. 29 OTHER CHRONIC PAIN 05/30/2019 KATHLEEN ROMAN MD Ot I10 ESSENTIAL (PRIMARY) HYPERTENSION 05/30/2019 KATHLEEN ROMAN MD Ot I48. 0 PAROXYSMAL ATRIAL FIBRILLATION 05/30/2019 KATHLEEN ROMAN MD Ot M19. 90 UNSPECIFIED OSTEOARTHRITIS, UNSPECIFIED 05/30/2019 KATHLEEN ROMAN MD Ot M54. 30 SCIATICA, UNSPECIFIED SIDE 05/30/2019 KATHLEEN ROMAN MD Ot Z79.891 MCC (CURRENT) USE OF OPIATE ANALGE 05/30/2019 KATHLEEN ROMAN MD Ot Z79.899 OTHER PATIENT PORTAL REPRESENTATIVE (CURRENT) DRUG THERAPY 05/30/2019 KATHLEEN ROMAN MD Ot Z86.711 PERSONAL HISTORY OF PULMONARY EMBOLISM 05/30/2019 KATHLEEN ROMAN MD Ot Z86.718 PERSONAL HISTORY OF OTHER VENOUS THROMBO 05/30/2019 KATHLEEN ROMAN MD Ot Z87.891 PERSONAL HISTORY OF NICOTINE DEPENDENCE 05/30/2019 KATHLEEN ROMAN MD Ot Z88. 1 ALLERGY STATUS TO OTHER ANTIBIOTIC AGENT 05/30/2019 KATHLEEN ROMAN MD Ot Z88. 5 ALLERGY STATUS TO NARCOTIC AGENT STATUS 05/30/2019 KATHLEEN ROMAN MD Ot Z88. 6 ALLERGY STATUS TO ANALGESIC AGENT STATUS 05/30/2019 KATHLEEN ROMAN MD Ot Z90.710 ACQUIRED ABSENCE OF BOTH CERVIX AND UTER 05/30/2019 KATHLEEN ROMAN MD Ot Z98. 84 BARIATRIC SURGERY STATUS 05/30/2019 KATHLEEN ROMAN MD Ot E03. 9 HYPOTHYROIDISM, UNSPECIFIED 05/30/2019 KATHLEEN ROMAN MD Ot E78. 5 HYPERLIPIDEMIA, UNSPECIFIED 05/30/2019 KATHLEEN ROMAN MD Ot F32. 9 MAJOR DEPRESSIVE DISORDER, SINGLE EPISOD 05/30/2019 KATHLEEN ORMAN MD Ot G89. 29 OTHER CHRONIC PAIN 05/30/2019 KATHLEEN ROMAN MD Ot I10 ESSENTIAL (PRIMARY) HYPERTENSION 05/30/2019 KATHLEEN ROMAN MD Ot I48. 0 PAROXYSMAL ATRIAL FIBRILLATION 05/30/2019 KATHLEEN ROMAN MD Ot M19. 90 UNSPECIFIED OSTEOARTHRITIS, UNSPECIFIED 05/30/2019 KATHLEEN ROMAN MD Ot M54. 30 SCIATICA, UNSPECIFIED SIDE 05/30/2019 KATHLEEN ROMAN MD Ot Z79.891 PATIENT PORTAL REPRESENTATIVE (CURRENT) USE OF OPIATE ANALGE 05/30/2019 KATHLEEN ROMAN MD Ot Z79.899 OTHER MCC (CURRENT) DRUG THERAPY 05/30/2019 KATHLEEN ROMAN MD Ot Z86.711 PERSONAL HISTORY OF PULMONARY EMBOLISM 05/30/2019 KATHLEEN ROMAN MD Ot Z86.718 PERSONAL HISTORY OF OTHER VENOUS THROMBO 05/30/2019 KATHLEEN ROMAN MD Ot Z87.891 PERSONAL HISTORY OF NICOTINE DEPENDENCE 05/30/2019 KATHLEEN ROMAN MD Ot Z88. 1 ALLERGY STATUS TO OTHER ANTIBIOTIC AGENT 05/30/2019 KATHLEEN ROMAN MD, Ot Z88. 5 ALLERGY STATUS TO NARCOTIC AGENT STATUS 05/30/2019 KATHLEEN ROMAN MD Ot Z88. 6 ALLERGY STATUS TO ANALGESIC AGENT STATUS 05/30/2019 KATHLEEN ROMAN MD Ot Z90.710 ACQUIRED ABSENCE OF BOTH CERVIX AND UTER 05/30/2019 KATHLEEN ROMAN MD Ot Z98. 84 BARIATRIC SURGERY STATUS 06/06/2019 KATHLEEN ROMAN MD Ot E03. 9 HYPOTHYROIDISM, UNSPECIFIED 06/06/2019 KATHLEEN ROMAN MD Ot E78. 5 HYPERLIPIDEMIA, UNSPECIFIED 06/06/2019 KATHLEEN ROMAN MD Ot F32. 9 MAJOR DEPRESSIVE DISORDER, SINGLE EPISOD 06/06/2019 KATHLEEN ROMAN MD Ot G89. 29 OTHER CHRONIC PAIN 06/06/2019 KATHLEEN ROMAN MD Ot I10 ESSENTIAL (PRIMARY) HYPERTENSION 06/06/2019 KATHLEEN ROMAN MD Ot I48. 0 PAROXYSMAL ATRIAL FIBRILLATION 06/06/2019 KATHLEEN ROMAN MD Ot M19. 90 UNSPECIFIED OSTEOARTHRITIS, UNSPECIFIED 06/06/2019 KATHLEEN ROMAN MD Ot M54. 30 SCIATICA, UNSPECIFIED SIDE 06/06/2019 KATHLEEN ROMAN MD Ot Z79.891 MCC (CURRENT) USE OF OPIATE ANALGE 06/06/2019 KATHLEEN ROMAN MD Ot Z79.899 OTHER MCC (CURRENT) DRUG THERAPY 06/06/2019 KATHLEEN ROMAN MD Ot Z86.711 PERSONAL HISTORY OF PULMONARY EMBOLISM 06/06/2019 KATHLEEN ROMAN MD Ot Z86.718 PERSONAL HISTORY OF OTHER VENOUS THROMBO 06/06/2019 KATHLEEN ROMAN MD Ot Z87.891 PERSONAL HISTORY OF NICOTINE DEPENDENCE 06/06/2019 KATHLEEN ROMAN MD Ot Z88. 1 ALLERGY STATUS TO OTHER ANTIBIOTIC AGENT 06/06/2019 KATHLEEN ROMAN MD Ot Z88. 5 ALLERGY STATUS TO NARCOTIC AGENT STATUS 06/06/2019 KATHLEEN ROMAN MD Ot Z88. 6 ALLERGY STATUS TO ANALGESIC AGENT STATUS 06/06/2019 KATHLEEN ROMAN MD Ot Z90.710 ACQUIRED ABSENCE OF BOTH CERVIX AND UTER 06/06/2019 KATHLEEN ROMAN MD Ot Z98. 84 BARIATRIC SURGERY STATUS 06/06/2019 KATHLEEN ROMAN MD Ot E03. 9 HYPOTHYROIDISM, UNSPECIFIED 06/06/2019 KATHLEEN ROMAN MD Ot E78. 5 HYPERLIPIDEMIA, UNSPECIFIED 06/06/2019 KATHLEEN ROMAN MD Ot F32. 9 MAJOR DEPRESSIVE DISORDER, SINGLE EPISOD 06/06/2019 KATHLEEN ROMAN MD Ot G89. 29 OTHER CHRONIC PAIN 06/06/2019 KATHLEEN ROMAN MD Ot I10 ESSENTIAL (PRIMARY) HYPERTENSION 06/06/2019 KATHLEEN ROMAN MD Ot I48. 0 PAROXYSMAL ATRIAL FIBRILLATION 06/06/2019 KATHLEEN ROMAN MD Ot M19. 90 UNSPECIFIED OSTEOARTHRITIS, UNSPECIFIED 06/06/2019 KATHLEEN ROMAN MD Ot M54. 30 SCIATICA, UNSPECIFIED SIDE 06/06/2019 KATHLEEN ROMAN MD Ot Z79.891 PATIENT PORTAL REPRESENTATIVE (CURRENT) USE OF OPIATE ANALGE 06/06/2019 KATHLEEN ROMAN MD Ot Z79.899 OTHER MCC (CURRENT) DRUG THERAPY 06/06/2019 KATHLEEN ROMAN MD Ot Z86.711 PERSONAL HISTORY OF PULMONARY EMBOLISM 06/06/2019 KATHLEEN ROMAN MD Ot Z86.718 PERSONAL HISTORY OF OTHER VENOUS THROMBO 06/06/2019 KATHLEEN ROMAN MD Ot Z87.891 PERSONAL HISTORY OF NICOTINE DEPENDENCE 06/06/2019 KATHLEEN ROMAN MD Ot Z88. 1 ALLERGY STATUS TO OTHER ANTIBIOTIC AGENT 06/06/2019 KATHLEEN ROMAN MD Ot Z88. 5 ALLERGY STATUS TO NARCOTIC AGENT STATUS 06/06/2019 KATHLEEN ROMAN MD Ot Z88. 6 ALLERGY STATUS TO ANALGESIC AGENT STATUS 06/06/2019 KATHLEEN ROMAN MD Ot Z90.710 ACQUIRED ABSENCE OF BOTH CERVIX AND UTER 06/06/2019 KATHLEEN ROMAN MD Ot Z98. 84 BARIATRIC SURGERY STATUS 08/07/2019 Vin LIU MD Ot E78.01 FAMILIAL HYPERCHOLESTEROLEMIA 08/07/2019 Vin LIU MD Ot I10 ESSENTIAL (PRIMARY) HYPERTENSION 08/07/2019 Vin LIU MD Ot I48.19 OTHER PERSISTENT ATRIAL FIBRILLATION 08/07/2019 Vin LIU MD Ot Z86.711 PERSONAL HISTORY OF PULMONARY EMBOLISM 08/07/2019 Vin LIU MD Ot E03 .9 HYPOTHYROIDISM, UNSPECIFIED 08/07/2019 Vin LIU MD Ot E78.01 FAMILIAL HYPERCHOLESTEROLEMIA 08/07/2019 Vin LIU MD Ot I10 ESSENTIAL (PRIMARY) HYPERTENSION 08/07/2019 Vin LIU MD Ot I48 .0 PAROXYSMAL ATRIAL FIBRILLATION 08/07/2019 Vin LIU MD Ot I48.19 OTHER PERSISTENT ATRIAL FIBRILLATION 08/07/2019 Vin LIU MD, Ot M54.40 LUMBAGO WITH SCIATICA, UNSPECIFIED SIDE 08/07/2019 Vin LIU MD Ot Z79.01 MCC (CURRENT) USE OF ANTICOAGULANT 08/07/2019 Vin LIU MD Ot Z79.899 OTHER PATIENT PORTAL REPRESENTATIVE (CURRENT) DRUG THERAPY 08/07/2019 Vin LIU MD Ot Z86.711 PERSONAL HISTORY OF PULMONARY EMBOLISM 08/07/2019 Vin LIU MD Ot Z87.891 PERSONAL HISTORY OF NICOTINE DEPENDENCE 08/07/2019 Vin LIU MD Ot Z88 .0 ALLERGY STATUS TO PENICILLIN 08/07/2019 Vin LIU MD Ot Z98.84 BARIATRIC SURGERY STATUS 08/07/2019 Vin LIU MD Ot E03 .9 HYPOTHYROIDISM, UNSPECIFIED 08/07/2019 Vin LIU MD Ot E78.01 FAMILIAL HYPERCHOLESTEROLEMIA 08/07/2019 Vin LIU MD Ot I10 ESSENTIAL (PRIMARY) HYPERTENSION 08/07/2019 Vin LIU MD Ot I48 .0 PAROXYSMAL ATRIAL FIBRILLATION 08/07/2019 Vin LIU MD Ot I48.19 OTHER PERSISTENT ATRIAL FIBRILLATION 08/07/2019 Vin LIU MD Ot M54.40 LUMBAGO WITH SCIATICA, UNSPECIFIED SIDE 08/07/2019 Vin LIU MD Ot Z79.01 PATIENT PORTAL REPRESENTATIVE (CURRENT) USE OF ANTICOAGULANT 08/07/2019 Vin LIU MD Ot Z79.899 OTHER MCC (CURRENT) DRUG THERAPY 08/07/2019 Vin LIU MD Ot Z86.711 PERSONAL HISTORY OF PULMONARY EMBOLISM 08/07/2019 Vin LIU MD Ot Z87.891 PERSONAL HISTORY OF NICOTINE DEPENDENCE 08/07/2019 Vin LIU MD Ot Z88 .0 ALLERGY STATUS TO PENICILLIN 08/07/2019 Vin LIU MD Ot Z98.84 BARIATRIC SURGERY STATUS 08/08/2019 Vin LIU MD Ot E03 .9 HYPOTHYROIDISM, UNSPECIFIED 08/08/2019 Vin LIU MD Ot E78.01 FAMILIAL HYPERCHOLESTEROLEMIA 08/08/2019 Vin LIU MD Ot I10 ESSENTIAL (PRIMARY) HYPERTENSION 08/08/2019 Vin LIU MD Ot I48 .0 PAROXYSMAL ATRIAL FIBRILLATION 08/08/2019 Vin LIU MD Ot I48.19 OTHER PERSISTENT ATRIAL FIBRILLATION 08/08/2019 Vin LIU MD Ot M54.40 LUMBAGO WITH SCIATICA, UNSPECIFIED SIDE 08/08/2019 Vin LIU MD Ot Z79.01 MCC (CURRENT) USE OF ANTICOAGULANT 08/08/2019 Vin LIU MD Ot Z79.899 OTHER PATIENT PORTAL REPRESENTATIVE (CURRENT) DRUG THERAPY 08/08/2019 Vin LIU MD Ot Z86.711 PERSONAL HISTORY OF PULMONARY EMBOLISM 08/08/2019 Vin LIU MD Ot Z87.891 PERSONAL HISTORY OF NICOTINE DEPENDENCE 08/08/2019 Vin LIU MD Ot Z88 .0 ALLERGY STATUS TO PENICILLIN 08/08/2019 Vin LIU MD Ot Z98.84 BARIATRIC SURGERY STATUS 09/18/2019 Vin LIU MD Ot I48.19 OTHER PERSISTENT ATRIAL FIBRILLATION 09/20/2019 Vin LIU MD Ot I48.19 OTHER PERSISTENT ATRIAL FIBRILLATION Procedures There is no data. Results Test Result Range Methicillin resistant Staphylococcus aur eus (MRSA) screening culture - 05/29/19 06:22 Methicillin resistant Staphylococcus aureus (MRSA) scr eening culture NEG NRG Complete blood count (CBC) with automate d white blood cell (WBC) differential - 05/29/19 14:10 Blood leukocytes automated count (number/volume) 3.3 10*3/uL 4.3-11.0 Blood erythrocytes automated count (number/volume) 3.36 10*6/uL 4.35-5.85 Venous blood hemoglobin measurement (mass/volume) 9.5 g/dL 11.5-16.0 Blood hematocrit (volume fraction) 30 % 35-52 Automated erythrocyte mean corpuscular volume 91 [ foz_us] 80-99 Automated erythrocyte mean corpuscular h emoglobin (mass per erythrocyte) 28 pg 25-34 Automated erythrocyte mean corpuscular h emoglobin concentration measurement (mass/volume) 31 g/dL 32-36 Automated erythrocyte distribution width ratio 15. 1 % 10.0- 14.5 Automated blood platelet count (count/volume) 147 10*3/uL 130-400 Automated blood platelet mean volume measurement 11.4 [foz_us] 7.4-10.4 Automated blood neutrophils/100 leukocytes 52 % 42-75 Automated blood lymphocytes/100 leukocytes 37 % 12-44 Blood monocytes/100 leukocytes 8 % 0-12 Automated blood eosinophils/100 leukocytes 2 % 0-10 Automated blood basophils/100 leukocytes 1 % 0-10 Blood neutrophils automated count (number/volume) 1.7 10*3 1.8-7.8 Blood lymphocytes automated count (number/volume) 1.2 10*3 1.0-4.0 Blood monocytes automated count (number/volume) 0. 3 10*3 0.0-1.0 Automated eosinophil count 0.1 10*3/uL 0 .0-0.3 Automated blood basophil count (count/volume) 0.0 10*3/uL 0.0-0.1 Comprehensive metabolic panel - 05/29/19 14:10 Serum or plasma sodium measurement (moles/volume) 139 mmol/L 135-145 Serum or plasma potassium measurement (moles/volume) 3.9 mmol/L 3.6-5.0 Serum or plasma chloride measurement (moles/volume) 110 mmol/L 98-107 Carbon dioxide 27 mmol/L 21-32 Serum or plasma anion gap determination (moles/volume) 2 mmol/L 5-14 Serum or plasma urea nitrogen measurement (mass/volume ) 21 mg/dL 7-18 Serum or plasma creatinine measurement (mass/volume) 0.70 mg/dL 0.60-1.30 Serum or plasma urea nitrogen/creatinine mass ratio 30 NRG Serum or plasma creatinine measurement w ith calculation of estimated glomerular filtration rate > NRG Serum or plasma glucose measurement (mass/volume) 94 mg/dL 70-105 Serum or plasma calcium measurement (mass/volume) 8.9 mg/dL 8.5-10.1 Serum or plasma total bilirubin measurement (mass/volu me) 0.3 mg/dL 0.1-1.0 Serum or plasma alkaline phosphatase angelo surement (enzymatic activity/volume) 68 U/L 40-136 Serum or plasma aspartate aminotransfera se measurement (enzymatic activity/volume) 16 U/L 5-34 Serum or plasma alanine aminotransferase measurement (enzymatic activity/volume) 14 U/L 0-55 Serum or plasma protein measurement (mass/volume) 5.4 g/dL 6.4-8.2 Serum or plasma albumin measurement (mass/volume) 2.7 g/dL 3.2-4.5 CALCIUM CORRECTED 9.9 mg/dL 8.5-10.1 Magnesium - 05/29/19 14:10 Magnesium 1.6 mg/dL 1.6-2.4 THYROID STIMULATING HORMONE - 05/29/19 1 4:10 THYROID STIMULATING HORMONE 0.75 u[iU]/mL 0.35-4.94 Automated blood complete blood count (he mogram) panel - 05/30/19 02:55 Blood leukocytes automated count (number/volume) 3.8 10*3/uL 4.3-11.0 Blood erythrocytes automated count (number/volume) 3.36 10*6/uL 4.35-5.85 Venous blood hemoglobin measurement (mass/volume) 9.7 g/dL 11.5-16.0 Blood hematocrit (volume fraction) 30 % 35-52 Automated erythrocyte mean corpuscular volume 90 [ foz_us] 80-99 Automated erythrocyte mean corpuscular h emoglobin (mass per erythrocyte) 29 pg 25-34 Automated erythrocyte mean corpuscular h emoglobin concentration measurement (mass/volume) 32 g/dL 32-36 Automated erythrocyte distribution width ratio 14. 8 % 10.0- 14.5 Automated blood platelet count (count/volume) 153 10*3/uL 130-400 Automated blood platelet mean volume measurement 11.4 [foz_us] 7.4-10.4 Whole blood basic metabolic panel - 05/14 03/31 02:55 Serum or plasma sodium measurement (moles/volume) 141 mmol/L 135-145 Serum or plasma potassium measurement (moles/volume) 4.1 mmol/L 3.6-5.0 Serum or plasma chloride measurement (moles/volume) 111 mmol/L 98-107 Carbon dioxide 24 mmol/L 21-32 Serum or plasma anion gap determination (moles/volume) 6 mmol/L 5-14 Serum or plasma urea nitrogen measurement (mass/volume ) 21 mg/dL 7-18 Serum or plasma creatinine measurement (mass/volume) 0.69 mg/dL 0.60-1.30 Serum or plasma urea nitrogen/creatinine mass ratio 30 NRG Serum or plasma creatinine measurement w ith calculation of estimated glomerular filtration rate > NRG Serum or plasma glucose measurement (mass/volume) 84 mg/dL 70-105 Serum or plasma calcium measurement (mass/volume) 9.0 mg/dL 8.5-10.1 Magnesium - 05/30/19 02:55 Magnesium 1.5 mg/dL 1.6-2.4 Encounters ACCT No. Visit Date/Time Discharge Status Pt. Type Provider Facility Loc./Unit Complaint [id number] 06/20/2019 11:43:00 00:01:00 DIS Outpatient Vin LIU MD [facility] CARD PERSISTENT AFIB [id number] 08/03/2019 07:48:00 23:59:59 CLS Outpatient Vin LIU MD [facility] CARD PERSISTENT A FIB [id number] 08/03/2019 07:46:00 23:59:59 CLS Outpatient Vin LIU MD [facility] CATH PAF [id number] 07/21/2019 10:56:00 23:59:59 CLS Preadmit Vin LIU MD [facility] CARD PERSISTENT A FIB [id number] 05/29/2019 11:22:00 10:35:00 DIS Outpatient ABEL STAUFFER, KATHLENE Banuelos [facility] ICU AFIB W RVR [id number] 05/24/2019 06:12:00 09:17:00 DIS Outpatient RENEE MCLEAN DO [facility] PREOP SPINAL CORD STIMULATOR [id number] 02/01/2020 09:00:00 P EN Vin Muniz MD [facility] SDC ATRIAL FIBRILLATION
--- NOTE | 2020-02-01 11:10 | NUR ---
DC IV, CATH INTACT, DRSG APPLIED
--- NOTE | 2020-02-01 11:10 | NUR ---
PT GIVEN DISCHARGE INSTRUCTIONS. GAG REFLEX INTACT. PT DC'D TO WAITING IN VEHICLE PER WHEELCHAIR.
--- NOTE | 2020-02-01 12:29 | Anesthesia-General Post-Op ---
MAC Patient Condition Mental Status/LOC: Same as Preop Cardiovascular: Satisfactory Nausea/Vomiting: Absent Respiratory: Satisfactory Pain: Controlled Complications: Absent Post Op Complications Complications None Follow Up Care/Instructions Patient Instructions None needed. Anesthesiology Discharge Order Discharge Order Patient is doing well, no complaints, stable vital signs, no apparent adverse anesthesia problems. No complications reported per nursing. ANA M PROCTOR CRNA February 01, 2020 12:29
--- NOTE | 2020-02-01 16:26 | Cardioversion ---
Cardioversion PROCEDURE PHYSICIAN: Mickie Almanzar MD DATE OF PROCEDURE: 02/01/20 DIRECT EXTERNAL ELECTRICAL CARDIOVERSION: Indications: Atrial Fibrillation Preoperative diagnoses: Atrial Fibrillation Postoperative diagnosis: Sinus rhythm, Successful Electrical Cardioversion History: 69 year old lady with persistent symptomatic AF. Previous ESAU cardioversion in 05/2019. ILR shows no AF till end of December 2019. Afterwards persistent AF. Anesthesia: By Anesthesia services Complications: None Specimen: None Contrast: 0 Flouroscopy: none Procedure Details: The patient was brought the yard laborer after informed consent was taken, all the risks and complications were explained including the risk of stroke. ESAU showed no evidence of LA or SERGEY thrombus. Electrical cardioversion was carried out with anesthesia support with propofol. 200 joules of synchronized shock was delivered through external patches which promptly restored sinus rhythm. The patient tolerated the procedure well. Conclusions: 1.Successful Cardioversion. 2.Continue oral anticoagulation and rate controlling agent. 3.Follow up in office in 7-14 days. Mickie Almanzar MD, [facility] Cardiac Electrophysiology Vin ALMANZAR MD February 01, 2020 16:26
== END ==
LOC: SDC 08:07
PROVIDERS: ATTEND Internal Medicine Interventional Cardiology
DX: I48.19 Other persistent atrial fibrillation (principal); I48.3 Typical atrial flutter; I26.99 Other pulmonary embolism without acute cor pulmonale; I10 Essential (primary) hypertension; G47.33 Obstructive sleep apnea (adult) (pediatric); K21.9 Gastro-esophageal reflux disease without esophagitis; M54.30 Sciatica, unspecified side; E78.5 Hyperlipidemia, unspecified; E78.01 Familial hypercholesterolemia; F41.9 Anxiety disorder, unspecified; Z88.0 Allergy status to penicillin; Z88.8 Allergy status to other drugs, medicaments and biological substances; Z88.6 Allergy status to analgesic agent; Z79.899 Other long term (current) drug therapy; Z95.828 Presence of other vascular implants and grafts; Z87.891 Personal history of nicotine dependence; Z80.9 Family history of malignant neoplasm, unspecified
CPT/HCPCS: 92960; 93005; 93312; 93320; 93325